=== PATIENT | male | born 2000 | race American Indian/Alaskan Native ===

== ENCOUNTER 2022-10-29 04:55 | Inpatient (IN) | payer OTHER ==
[2022-10-29] VITALS (39 sets, daily range): BP systolic 149–190; BP diastolic 69–110
[~2022-10-29] VITALS: Ht 182.9 cm; Wt 136.1 kg
[2022-10-29 05:16] LABS: BASOPHILS ABSOLUTE AUTO 0.08 K/mm3 (0.00-0.23); BASOPHILS PERCENT AUTO 0 % (0-2); EOSINOPHILS ABSOLUTE AUTO 0.01 K/mm3 (0.00-0.68); EOSINOPHILS PERCENT AUTO 0 % (0-6); Hemoglobin 15.9 g/dL (13.5-17.5); IMMATURE GRAN ABSOLUTE AUTO 0.21 K/mm3 (0.00-0.10); IMMATURE GRAN PERCENT AUTO 1 % (0-1); LYMPHOCYTES ABSOLUTE AUTO 1.18 K/mm3 (0.84-5.20); LYMPHOCYTES PERCENT AUTO 6 % (21-46); MONOCYTES ABSOLUTE AUTO 2.31 K/mm3 (0.16-1.47); MONOCYTES PERCENT AUTO 12 % (4-13); Mean Corpuscular HGB 28.5 pg (26.0-34.0); Mean Corpuscular HGB Conc 36.1 g/dL (31.5-36.5); Mean Corpuscular Volume 79 fL (80-100); Mean Platelet Volume 9.5 fL (9.1-12.4); NEUTROPHILS ABSOLUTE AUTO 14.84 K/mm3 (1.96-9.15); NEUTROPHILS PERCENT AUTO 80 % (41-73); Platelet Count 447 K/mm3 (150-400); RDW Coefficient Variation 15.4 % (11.7-14.2); RDW Standard Deviation 43.5 fL (35.1-46.3); Red Blood Cell Count 5.58 M/mm3 (4.30-5.90); White Blood Cell Count 18.63 K/mm3 (4.00-11.30)
[2022-10-29 05:25] LABS: Calcium, Ionized (POC) 1.16 mmol/L (1.10-1.46); Chloride (POC) 103 mmol/L (98-108); Creatinine (POC) 0.7 mg/dL (0.8-1.3); Glucose (ISTAT POC) 484 mg/dL (70-99); Potassium (POC) <2.0 mmol/L (3.5-5.5); Sodium (POC) 131 mmol/L (135-148); Total CO2 (POC) 8 mmol/L (21-32)
[2022-10-29 06:05] LABS: Base Excess Venous -26.7 mmol/L; Bicarbonate Venous 7.7 mmol/L (24.0-30.0); PCO2 Venous 15.4 mmHg (38-42); pH Blood Venous 7.03 (7.34-7.37)
[2022-10-29 06:06] LABS: Albumin/Globulin Ratio 0.5 (0.8-1.8); Beta-hydroxybutyrate 85.9 mg/dL (0.2-2.8); Bilirubin, Total 0.8 mg/dL (0.1-1.0); Bun/Creatinine Ratio 15.1 (12.0-20.0); Calcium, Blood 8.2 mg/dL (8.5-10.1); Creatinine, Blood 0.8 mg/dL (0.60-1.20); Globulin, Blood 5.6 g/dL (2.2-4.0); Potassium, Blood 2.1 mmol/L (3.5-5.5); Total Protein, Blood 8.6 g/dL (6.4-8.2)
[2022-10-29 06:09] LABS: Source, Urine Clean Catch
[2022-10-29 06:17] LABS: Bilirubin, Urine Neg (Neg); Blood, Urine 4+ (Neg); Glucose Qualitative, Urine 4+ (Neg); Ketones, Urine 4+ (Neg); Leukocyte Esterase, Urine Neg (Neg); Nitrite, Urine Neg (Neg); Protein, Urine 3+ (Neg); Specific Gravity, Urine 1.015 (1.003-1.022); Urobilinogen, Urine NORM (Normal)
[2022-10-29 06:18] LABS: Appearance, Urine Clear (Clear); Color, Urine Yellow (P-Yellow)
[2022-10-29 06:23] LABS: Amorphous Light (0-Heavy); Bacteria Rare /hpf; Squamous Epithelial Cells Few /hpf (Few); White Blood Cells, Urine 0-2 /hpf (0-5)
[2022-10-29 10:00] LABS: Bun/Creatinine Ratio 17.4 (12.0-20.0); Creatinine, Blood 0.63 mg/dL (0.60-1.20); Potassium, Blood 1.9 mmol/L (3.5-5.5)
--- NOTE | 2022-10-29 10:32 | NUR ---
PHONE CALL: Dr Rivers notified of EKG results
[2022-10-29 12:22] LABS: Magnesium, Blood 2.7 mg/dL (1.6-2.4)
[2022-10-29 12:27] LABS: Bun/Creatinine Ratio 18.7 (12.0-20.0); Calcium, Blood 6.8 mg/dL (8.5-10.1); Creatinine, Blood 0.59 mg/dL (0.60-1.20); Phosphorus, Blood 0.5 mg/dL (2.5-4.9); Potassium, Blood 1.3 mmol/L (3.5-5.5)
--- NOTE | 2022-10-29 12:36 | NUR ---
PROVIDER UPDATE: Dr Gardner at bedside at reassess pt. Critical lab values discussed. RT called to place BIPAP at pt is complaining of SOB. Pt is now lethargic.
[2022-10-29 13:14] LABS: Source, Urine Foley catheter
[2022-10-29 13:25] LABS: PO2 Arterial 177 mmHg (80-100)
[2022-10-29 13:26] LABS: PCO2 Arterial 14.6 mmHg (35-45)
[2022-10-29 13:29] LABS: Bilirubin, Urine Neg (Neg); Blood, Urine 3+ (Neg); Glucose Qualitative, Urine 4+ (Neg); Ketones, Urine 4+ (Neg); Leukocyte Esterase, Urine Neg (Neg); Nitrite, Urine Neg (Neg); Protein, Urine 2+ (Neg); Specific Gravity, Urine 1.015 (1.003-1.022); Urobilinogen, Urine NORM (Normal)
[2022-10-29 13:36] LABS: Appearance, Urine Hazy (Clear); Color, Urine Pale Yellow (P-Yellow)
[2022-10-29 13:38] LABS: White Blood Cells, Urine 0-2 /hpf (0-5)
[2022-10-29 13:39] LABS: Amorphous Light (0-Heavy); Bacteria Few /hpf; Squamous Epithelial Cells Rare /hpf (Few)
--- NOTE | 2022-10-29 14:07 | NUR ---
ABG: Critical ABG results discussed with Dr Gardner. No new orders.
[2022-10-29 14:25] LABS: U Amphetamine Screen Not Detected; U Barbituate Screen Not Detected; U Benzodiazapine Screen Not Detected; U Buprenorphine Screen Not Detected; U Cannabinoids Screen Not Detected; U Cocaine Screen Not Detected; U Methadone Screen Not Detected; U Methamphetamine Screen Not Detected; U Opiates Screen Not Detected; U Oxycodone Screen Not Detected; U Phencyclidine Screen Not Detected; U Propoxyphene Screen Not Detected
--- NOTE | 2022-10-29 15:51 | NUR ---
PROVIDER UPDATE: Dr Gardner updated on critical potassium.
[2022-10-29 15:53] LABS: Phosphorus, Blood 1.9 mg/dL (2.5-4.9)
--- NOTE | 2022-10-29 17:40 | NUR ---
PROVIDER UPDATE: Dr Gardner notified of continued hypertension.
[2022-10-29 18:14] LABS: Bun/Creatinine Ratio 17.4 (12.0-20.0); Calcium, Blood 7.7 mg/dL (8.5-10.1); Creatinine, Blood 0.86 mg/dL (0.60-1.20); Potassium, Blood 2.5 mmol/L (3.5-5.5)
--- NOTE | 2022-10-29 18:16 | NUR ---
UPDATE: Discussed K 2.5 with bss solution architect who will call [facility] for further instruction.
--- NOTE | 2022-10-29 18:48 | NUR ---
SHIFT SUMMARY: Pt admitted to ICU today. Contact precautions started for open skin wounds. Knife Setter Grinder Machine consulted and PICC line placed. Potassium replaced aggressively. 2g magnesium given. Fontana placed for accurate I/Os. Pt became very lethargic. NG was placed in right nare and BIPAP placed 10/5 30%. Oral care provided frequently per pt request. Brother at bedside and supportive.
--- NOTE | 2022-10-29 19:59 | NUR ---
PT STARTING TO SPIKE A TEMP, DR ACEVEDO NOTIFIED, ORDERS GIVEN. DR BRITO CALLED FOR UPDATE ON PT, UPDATE GIVEN WELL ORDERS.
[2022-10-29 20:49] LABS: Bun/Creatinine Ratio 17.8 (12.0-20.0); Calcium, Blood 7.9 mg/dL (8.5-10.1); Creatinine, Blood 0.96 mg/dL (0.60-1.20); Phosphorus, Blood 3.4 mg/dL (2.5-4.9)
--- NOTE | 2022-10-29 21:17 | NUR ---
DR BRITO NOTIFIED OF PT MOST RECENT LAB VALUES/CRITICAL RESULTS. ORDERS GIVEN.
--- NOTE | 2022-10-29 22:14 | NUR ---
PT NOTED TO BE MORE LETHARGIC THAN THE BEGININNING OF SHIFT. NOTIFIED DR BRITO. ABG ORDERED, WILL CALL RESULTS WHEN OBTAINED.
[2022-10-29 22:15] LABS: PCO2 Arterial 22.6 mmHg (35-45); PO2 Arterial 152 mmHg (80-100)
[2022-10-29 22:17] LABS: pH Blood Arterial 6.98 (7.35-7.45)
--- NOTE | 2022-10-29 23:07 | NUR ---
DR BRITO AT BEDSIDE TO EVALUATE PATIENT. PLAN OF CARE UPDATED AND ORDERS GIVEN. PT REMAINS LETHARGIC ON BIPAP AT THIS TIME. BP WNL, ST ON THE RIBBON SWEATBAND OPERATOR. OXYGEN SAT 99% AT THIS TIME.
[2022-10-30] VITALS (33 sets, daily range): BP systolic 84–172; BP diastolic 27–107
[2022-10-30 00:26] LABS: pH Blood Venous 7.05 (7.34-7.37)
[2022-10-30 00:27] LABS: Base Excess Venous -24.9 mmol/L; Bicarbonate Venous 8.7 mmol/L (24.0-30.0); PCO2 Venous 20.8 mmHg (38-42)
[2022-10-30 00:48] LABS: Magnesium, Blood 3.2 mg/dL (1.6-2.4)
[2022-10-30 00:58] LABS: Albumin, Blood 2.6 g/dL (3.4-5.0); Anion Gap 21 mmol/L (6-16); Blood Urea Nitrogen 20 mg/dL (8-24); Bun/Creatinine Ratio 18.9 (12.0-20.0); CO2, Blood 6 mmol/L (21-32); Calcium, Blood 8.4 mg/dL (8.5-10.1); Chloride, Blood 125 mmol/L (98-108); Creatinine, Blood 1.06 mg/dL (0.60-1.20); Glomerular Filtration Rate 102 (60-); Glucose, Blood 589 mg/dL (70-99); Phosphorus, Blood 1.2 mg/dL (2.5-4.9); Potassium, Blood 3.4 mmol/L (3.5-5.5); Sodium, Blood 152 mmol/L (136-145)
[2022-10-30 02:22] LABS: BASOPHILS PERCENT AUTO 1 % (0-2); EOSINOPHILS PERCENT AUTO 0 % (0-6); Hemoglobin 15.1 g/dL (13.5-17.5); IMMATURE GRAN ABSOLUTE AUTO 0.39 K/mm3 (0.00-0.10); IMMATURE GRAN PERCENT AUTO 2 % (0-1); LYMPHOCYTES ABSOLUTE AUTO 0.81 K/mm3 (0.84-5.20); LYMPHOCYTES PERCENT AUTO 4 % (21-46); MONOCYTES ABSOLUTE AUTO 1.93 K/mm3 (0.16-1.47); MONOCYTES PERCENT AUTO 10 % (4-13); Mean Corpuscular HGB 28.5 pg (26.0-34.0); Mean Corpuscular HGB Conc 35.1 g/dL (31.5-36.5); Mean Corpuscular Volume 81 fL (80-100); Mean Platelet Volume 9.6 fL (9.1-12.4); NEUTROPHILS ABSOLUTE AUTO 16.29 K/mm3 (1.96-9.15); NEUTROPHILS PERCENT AUTO 84 % (41-73); Platelet Count 425 K/mm3 (150-400); RDW Coefficient Variation 16.9 % (11.7-14.2); RDW Standard Deviation 47.9 fL (35.1-46.3); Red Blood Cell Count 5.29 M/mm3 (4.30-5.90); White Blood Cell Count 19.52 K/mm3 (4.00-11.30)
[2022-10-30 02:39] LABS: Magnesium, Blood 3.3 mg/dL (1.6-2.4)
[2022-10-30 02:41] LABS: Albumin, Blood 2.6 g/dL (3.4-5.0); Albumin/Globulin Ratio 0.5 (0.8-1.8); Bilirubin, Total 0.8 mg/dL (0.1-1.0); Bun/Creatinine Ratio 20.4 (12.0-20.0); Calcium, Blood 8.3 mg/dL (8.5-10.1); Creatinine, Blood 1.03 mg/dL (0.60-1.20); Phosphorus, Blood 1.1 mg/dL (2.5-4.9); Potassium, Blood 3.7 mmol/L (3.5-5.5); Total Protein, Blood 7.6 g/dL (6.4-8.2)
[2022-10-30 05:38] LABS: Base Excess Venous -22.1 mmol/L; Bicarbonate Venous 10.4 mmol/L (24.0-30.0); PCO2 Venous 23.7 mmHg (38-42); pH Blood Venous 7.11 (7.34-7.37)
[2022-10-30 06:23] LABS: Magnesium, Blood 2.9 mg/dL (1.6-2.4)
--- NOTE | 2022-10-30 06:42 | NUR ---
INSULIN GTT STOPPED PER DR BRITO
[2022-10-30 06:45] LABS: Albumin, Blood 2.5 g/dL (3.4-5.0); Anion Gap 20 mmol/L (6-16); Blood Urea Nitrogen 23 mg/dL (8-24); Bun/Creatinine Ratio 23.7 (12.0-20.0); CO2, Blood 8 mmol/L (21-32); Calcium, Blood 8.4 mg/dL (8.5-10.1); Chloride, Blood 133 mmol/L (98-108); Creatinine, Blood 0.97 mg/dL (0.60-1.20); Glomerular Filtration Rate 114 (60-); Glucose, Blood 538 mg/dL (70-99); Phosphorus, Blood 0.8 mg/dL (2.5-4.9); Potassium, Blood 2.2 mmol/L (3.5-5.5); Sodium, Blood 161 mmol/L (136-145)
--- NOTE | 2022-10-30 06:47 | NUR ---
SPOKE TO DR BRITO ABOUT CRITICAL NA,PHOS, CO2, GLUCOSE AND PH. SEE ORDERS FOR INTERVENTIONS.
[2022-10-30 07:50] LABS: Glucose, Blood 553 mg/dL (70-99); Potassium, Blood 2.3 mmol/L (3.5-5.5)
[2022-10-30 08:28] LABS: Phosphorus, Blood 2.5 mg/dL (2.5-4.9); Potassium, Blood 2.4 mmol/L (3.5-5.5)
[2022-10-30 10:05] LABS: Salicylate 3.2 mg/dL (2.8-20.0); Thyroid Stimulating Hormone 0.254 uIU/mL (0.360-4.800)
[2022-10-30 11:18] LABS: Source, Urine Foley catheter
[2022-10-30 11:22] LABS: Appearance, Urine Cloudy (Clear); Bilirubin, Urine Neg (Neg); Blood, Urine 5+ (Neg); Color, Urine Yellow (P-Yellow); Glucose Qualitative, Urine 4+ (Neg); Ketones, Urine 4+ (Neg); Leukocyte Esterase, Urine Neg (Neg); Nitrite, Urine Neg (Neg); Protein, Urine 3+ (Neg); Urobilinogen, Urine NORM (Normal)
--- NOTE | 2022-10-30 11:31 | NUR ---
UPDATE: [facility] transport crew at bedside. Report given. Pt's brother Onle called and updated on transfer status.
[2022-10-30 11:37] LABS: White Blood Cells, Urine 0-2 /hpf (0-5)
[2022-10-30 11:38] LABS: Squamous Epithelial Cells Not Seen /hpf (Few)
[2022-10-30 11:39] LABS: Amorphous Mod (0-Heavy); Bacteria Few /hpf; Mucus Light (0-Heavy)
[2022-10-30 12:00] LABS: SARS-Cov-2 (COVID-19) PCR, MMC NEGATIVE (NEGATIVE)
--- NOTE | 2022-10-30 12:10 | NUR ---
TRANSFER: Pt transferred to [facility] via [facility]. Report was called to EMILEE Khan. NG replaced this morning. See MAR for electrolyte replacement. All critical lab values were discussed with Dr Gardner at bedside.
--- NOTE | 2022-10-30 12:49 | NUR ---
BELONGINGS: pt brother, Onel, called and asked to curing pickling packer pt belongings. Stats he will come by this afternoon.
--- NOTE | 2022-10-30 13:06 | NUR ---
BELONGINGS: Pt belongings given to pt's brother. Cell phone with hand developer verified in belongings bag.
--- NOTE | 2022-11-06 20:41 | NUR ---
REVIEWED PT'S INFORMATION R/T CURRENT ADMISSION
== END 2022-10-30 12:10 | disposition short-term general hospital (02) | DRG 637 ==
LOC: ER 04:55 → ICUE 07:14
PROVIDERS: Emergency Medicine; Internal Medicine Critical Care Medicine; ADMIT Hospitalist
PROC: 4A033R1 Measurement of Arterial Saturation, Peripheral, Percutaneous Approach (ICD-10-PCS; principal; 2022-10-29)
PROC: 0DH67UZ Insertion of Feeding Device into Stomach, Via Natural or Artificial Opening (ICD-10-PCS; 2022-10-29)
PROC: 3E033XZ Introduction of Vasopressor into Peripheral Vein, Percutaneous Approach (ICD-10-PCS; 2022-10-29)
PROC: 5A09357 Assistance with Respiratory Ventilation, Less than 24 Consecutive Hours, Continuous Positive Airway Pressure (ICD-10-PCS; 2022-10-29)
PROC: 02HV33Z Insertion of Infusion Device into Superior Vena Cava, Percutaneous Approach (ICD-10-PCS; 2022-10-29)
PROC: 3E03329 Introduction of Other Anti-infective into Peripheral Vein, Percutaneous Approach (ICD-10-PCS; 2022-10-29)
PROC: 5A1935Z Respiratory Ventilation, Less than 24 Consecutive Hours (ICD-10-PCS; 2022-10-30)
DX: E11.10 Type 2 diabetes mellitus with ketoacidosis without coma (principal); A41.9 Sepsis, unspecified organism; G92.8 Other toxic encephalopathy; E87.0 Hyperosmolality and hypernatremia; L02.415 Cutaneous abscess of right lower limb; L02.416 Cutaneous abscess of left lower limb; L02.214 Cutaneous abscess of groin; Z68.41 Body mass index [BMI] 40.0-44.9, adult; L02.31 Cutaneous abscess of buttock; E87.6 Hypokalemia; E66.9 Obesity, unspecified; R35.89 Other polyuria; R94.31 Abnormal electrocardiogram [ECG] [EKG]; E83.39 Other disorders of phosphorus metabolism; B95.61 Methicillin susceptible Staphylococcus aureus infection as the cause of diseases classified elsewhere; E86.0 Dehydration; E87.5 Hyperkalemia; Z20.822 Contact with and (suspected) exposure to COVID-19
CPT/HCPCS: 36415; 36569; 36600; 51702; 71045; 80047; 80048; 80053; 80069; 81001; 82010; 82330; 82803; 82947; 83036; 83605; 83735; 83930; 83935; 84100; 84132; 84133; 84300; 84443; 85014; 85025; 87040; 87081; 93005; 93010; 94660; 96365; 96366; 96367; 96368; 99285-25; A9270; C1751; G0480; J0295; J1650; J1815; J2597; J3370; J3475; J3480; J7030; J7040; J7050; J7060; J7120; S0077; U0002

== ENCOUNTER 2022-12-04 14:59 | Emergency (ER) | payer OTHER ==
[~2022-12-04] VITALS: Ht 182.9 cm; Wt 124.3 kg
[~2022-12-04 14:59] MED LIST: AMOCLA875 PO; HUMALOG MI100 UNIT/1 SC; INSULANI SC; VISBIOME 112.51 EACH PO
[2022-12-04 15:04] VITALS: BP 160/109
[2022-12-04] MEDS ORDERED: DICLOFENAC SOD100 GM TOP (15:50)
== END 2022-12-04 16:00 | disposition home or self-care (01) ==
LOC: ER 14:59
DX: M79.672 Pain in left foot (principal); R20.2 Paresthesia of skin; E10.9 Type 1 diabetes mellitus without complications; I10 Essential (primary) hypertension; Z79.4 Long term (current) use of insulin
CPT/HCPCS: 73630; 99283-25